=== PATIENT | female | born 1940 | race Caucasian/White ===

== ENCOUNTER 2021-01-16 16:54 | Inpatient (IN) | payer MEDICARE, OTHER ==
[~2021-01-16] VITALS: Ht 162.6 cm; Wt 67.5 kg
[2021-01-16] MEDS ORDERED: CefTRIAXone/D5W-Rocephin 1gm 50 ML IV ONE (17:40)
[2021-01-16] MEDS ORDERED: normal saline 1000ML IV soln IVB ONE (17:40)
[2021-01-16 18:15] LABS: CLARITY,URINE SLIGHTLY CLOUDY (Clear); COLOR,URINE YELLOW (Yellow); GLUCOSE, URINE NEGATIVE (Neg); KETONES,URINE NEGATIVE (Neg); LEUKOCYTE ESTERASE ,URINE LARGE (Neg); NITRITES, URINE NEGATIVE (Neg); OCCULT BLOOD,URINE SMALL (Neg); PROTEIN,URINE NEGATIVE (Neg); UA COLLECTION TYPE CLN CATCH MIDSTREAM; UROBILINOGEN,URINE 0.2 E.U/dL (0.2-1.0)
[2021-01-16 18:20] LABS: BASOPHILS # (AUTO) 0.1 X10'3 (0-0.2); BASOPHILS % (AUTO) 0.9 % (0-1); EOSINOPHILS % (AUTO) 0.1 % (0-6); HEMATOCRIT 40.2 % (35.0-45.0); HEMOGLOBIN 13.5 g/dl (12.0-16.0); LYMPHOCYTES # (AUTO) 0.2 X10'3 (1.1-4.8); LYMPHOCYTES % (AUTO) 2.2 % (21-51); MEAN CORPUSCULAR HEMOGLOBIN 30.2 PG (27.0-31.0); MEAN CORPUSCULAR HGB CONC 33.5 g/dL (33.0-36.5); MEAN CORPUSCULAR VOLUME 90.2 FL (78-98); MEAN PLATELET VOLUME 8.7 FL (7.4-10.4); MONOCYTES # (AUTO) 0.1 X10'3 (0-0.9); MONOCYTES % (AUTO) 1.8 % (2-12); NEUTROPHILS # (AUTO) 6.7 X10'3 (1.8-7.7); PLATELET COUNT 91 X10'3 (140-440); RED BLOOD COUNT 4.46 X10'6 (4.20-5.60); RED CELL DISTRIBUTION WIDTH 14.1 % (11.5-14.5)
[2021-01-16 18:24] LABS: BACTERIA,URINE 3+ /HPF (Neg); MUCUS STRANDS NONE SEEN /LPF (Neg); SQUAMOUS EPITHELIAL CELL,UR FEW /LPF (FEW); WBC CLUMPS,URINE MODERATE /HPF (NEGATIVE); WBC,URINE TNTC /HPF (0-4)
[2021-01-16] MEDS ORDERED: acetaminophen 325mg tablet PO ONE (18:30)
[2021-01-16 18:34] LABS: ALANINE AMINOTRANSFERASE 22 U/L (12-78); ALBUMIN 3.5 G/DL (3.4-5.0); ALKALINE PHOSPHATASE 87 IU/L (46-116); ANION GAP 9 (8-16); ASPARTATE AMINO TRANSFERASE 24 U/L (10-37); BILIRUBIN,TOTAL 0.6 MG/DL (0.1-1.0); BLOOD UREA NITROGEN 17 MG/DL (7-18); BUN/CREATININE RATIO 16.7 (6.6-38.0); CALCIUM 9.8 MG/DL (8.5-10.1); CHLORIDE 101 MMOL/L (99-107); CREATININE 1.02 MG/DL (0.40-0.90); GLUCOSE 141 MG/DL (70-104); SODIUM 135 MMOL/L (135-145); TOTAL PROTEIN 6.9 G/DL (6.4-8.2); eGFR 52 ML/MIN
--- NOTE | 2021-01-16 19:58 | NUR ---
[employer]ix [employer] :[phone]
[2021-01-16] MEDS ORDERED: NO HOME MEDS (20:25)
[2021-01-16] MEDS ORDERED: HYDROcodone/acetaminophen 5mg/325mg tablet PO PRN (20:55)
[2021-01-16] MEDS ORDERED: diphenhydrAMINE 25mg capsule PO PRN (20:55)
[2021-01-16] MEDS ORDERED: ondansetron/PF 4mg/2ml inj IV PRN (20:55)
[2021-01-16] MEDS ORDERED: diphenhydrAMINE 50 mg/ml inj IV PRN (20:55)
[2021-01-16] MEDS ORDERED: acetaminophen 325mg tablet PO PRN ×2 (20:55)
[2021-01-16] MEDS ORDERED: mag hydrox/Alum hydrox/simeth 30ml oral suspension PO PRN (20:55)
[2021-01-16] MEDS ORDERED: acetaminophen 650mg rectal suppository RC PRN (20:55)
[2021-01-16] MEDS ORDERED: magnesium hydroxide 30ml (MOM) UD suspension PO PRN (20:55)
[2021-01-16] MEDS ORDERED: morphine 2 MG/ML inj. syringe IV PRN (20:55)
[2021-01-16] MEDS ORDERED: bisacodyl 10mg suppository rectal RC PRN (20:55)
[2021-01-16] MEDS ORDERED: ondansetron 4mg rapidly disintigrating tab PO PRN (20:55)
[2021-01-16] MEDS ORDERED: temazepam 15mg capsule PO PRN (21:00)
[2021-01-16 21:25] LABS: PARTIAL THROMBOPLASTIN TIME 25 SECONDS (22-32)
[2021-01-16] MEDS: dextrose 5%-1/2 normal saline 1,000 ML IV SCH (21:32)
[2021-01-16 21:34] LABS: MAGNESIUM 1.7 MG/DL (1.5-2.4); PHOSPHORUS 2.1 MG/DL (2.3-4.5)
[2021-01-16 22:30] VITALS: BP 140/72
[2021-01-16] MEDS ORDERED: sodium phosphate inj. 30 MMOL in dextrose 5%-water 250 ML IV PRN (22:40)
[2021-01-16] MEDS ORDERED: sodium phosphate inj. 15 MMOL in dextrose 5%-water 250 ML IV PRN (22:40)
[2021-01-16] MEDS ORDERED: Neutra Phos packet PO PRN (22:40)
--- NOTE | 2021-01-16 22:40 | NUR ---
2200: Received report from FALLON Dhaliwal. 2200: Patient arrived to unit wearing pants, socks, and shoes. No other belongings arrived with patient.
--- NOTE | 2021-01-17 06:27 | NUR ---
Problems reprioritized. Patient report given, questions answered & plan of care reviewed with FALLON Dong.
[2021-01-17 06:33] LABS: EOSINOPHILS # (AUTO) 0.1 X10'3 (0-0.9); HEMOGLOBIN 11.7 g/dl (12.0-16.0); MEAN CORPUSCULAR VOLUME 89.6 FL (78-98); MONOCYTES # (AUTO) 0.9 X10'3 (0-0.9)
--- NOTE | 2021-01-17 06:36 | NUR ---
Patient in room [facility]. I have received report from Wilner LEHMAN and had the opportunity to ask questions and assume patient care.
[2021-01-17 06:37] LABS: BASOPHILS % (AUTO) 0.4 % (0-1); EOSINOPHILS % (AUTO) 1.4 % (0-6); HEMATOCRIT 34.6 % (35.0-45.0); LYMPHOCYTES # (AUTO) 1.2 X10'3 (1.1-4.8); LYMPHOCYTES % (AUTO) 17.1 % (21-51); MEAN CORPUSCULAR HEMOGLOBIN 30.2 PG (27.0-31.0); MEAN CORPUSCULAR HGB CONC 33.7 g/dL (33.0-36.5); MEAN PLATELET VOLUME 8.4 FL (7.4-10.4); MONOCYTES % (AUTO) 12.4 % (2-12); NEUTROPHILS # (AUTO) 4.8 X10'3 (1.8-7.7); NEUTROPHILS % (AUTO) 68.7 % (42-75); PLATELET COUNT 87 X10'3 (140-440); RED BLOOD COUNT 3.86 X10'6 (4.20-5.60); RED CELL DISTRIBUTION WIDTH 14.3 % (11.5-14.5); WHITE BLOOD COUNT 6.9 X10'3 (4.5-11.0)
[2021-01-17 06:44] LABS: ALANINE AMINOTRANSFERASE 20 U/L (12-78); ALBUMIN 2.6 G/DL (3.4-5.0); ALBUMIN/GLOBULIN RATIO 0.9 (1.1-1.5); ALKALINE PHOSPHATASE 65 IU/L (46-116); ANION GAP 4 (8-16); ASPARTATE AMINO TRANSFERASE 20 U/L (10-37); BILIRUBIN,TOTAL 0.4 MG/DL (0.1-1.0); BLOOD UREA NITROGEN 13 MG/DL (7-18); BUN/CREATININE RATIO 14.3 (6.6-38.0); CALCIUM 9.2 MG/DL (8.5-10.1); CHLORIDE 112 MMOL/L (99-107); CREATININE 0.91 MG/DL (0.40-0.90); GLUCOSE 113 MG/DL (70-104); POTASSIUM 4.2 MMOL/L (3.5-5.1); SODIUM 143 MMOL/L (135-145); TOTAL CARBON DIOXIDE 26.8 MMOL/L (24-32); TOTAL PROTEIN 5.5 G/DL (6.4-8.2); eGFR 59 ML/MIN
[2021-01-17 07:20] VITALS: BP 115/42
[2021-01-17] MEDS: pantoprazole 40mg Tablet.DR PO SCH (07:30)
[2021-01-17] MEDS ORDERED: heparin, porcine 5000 units/ml vial SQ SCH (08:00)
[2021-01-17] MEDS: docusate sod 100mg capsule PO SCH ×2 (08:00→20:00)
[2021-01-17] MEDS: dextrose 5%-1/2 normal saline 1,000 ML IV SCH ×2 (08:04→16:55)
--- NOTE | 2021-01-17 08:08 | NUR ---
Held heparin AQ due to platelets of 87 will discuss with primary RN Iker and have his discuss with
[2021-01-17 11:00] VITALS: BP 166/64
[2021-01-17 13:48] VITALS: BP_SYST 124; BP_SYST 131; BP_SYST 155; BP_DIAS 44; BP_DIAS 53; BP_DIAS 73
[2021-01-17] MEDS ORDERED: CefTRIAXone/D5W-Rocephin 1gm 50 ML IV SCH (17:00)
[2021-01-17 18:30] VITALS: BP 160/65
--- NOTE | 2021-01-17 18:37 | NUR ---
Problems reprioritized. Patient report given, questions answered & plan of care reviewed with DUNCAN LEHMAN.
[2021-01-17] MEDS: lactobacillus rhamnosus 10,000 MMU CELLS/CAPSULE PO SCH (20:17)
[2021-01-18] VITALS: BP 158/61
[2021-01-18] MEDS: dextrose 5%-1/2 normal saline 1,000 ML IV SCH (02:55)
--- NOTE | 2021-01-18 06:40 | NUR ---
Problems reprioritized. Patient report given, questions answered & plan of care reviewed with DUNCAN LEHMAN.
[2021-01-18 06:56] LABS: BASOPHILS % (AUTO) 0.8 % (0-1); EOSINOPHILS # (AUTO) 0.2 X10'3 (0-0.9); EOSINOPHILS % (AUTO) 4.2 % (0-6); HEMATOCRIT 36.3 % (35.0-45.0); HEMOGLOBIN 12.1 g/dl (12.0-16.0); LYMPHOCYTES # (AUTO) 1.3 X10'3 (1.1-4.8); LYMPHOCYTES % (AUTO) 27.8 % (21-51); MEAN CORPUSCULAR HEMOGLOBIN 30.2 PG (27.0-31.0); MEAN CORPUSCULAR HGB CONC 33.2 g/dL (33.0-36.5); MEAN CORPUSCULAR VOLUME 90.9 FL (78-98); MEAN PLATELET VOLUME 8.9 FL (7.4-10.4); MONOCYTES # (AUTO) 0.7 X10'3 (0-0.9); MONOCYTES % (AUTO) 14.4 % (2-12); NEUTROPHILS # (AUTO) 2.5 X10'3 (1.8-7.7); NEUTROPHILS % (AUTO) 52.8 % (42-75); PLATELET COUNT 94 X10'3 (140-440); RED BLOOD COUNT 3.99 X10'6 (4.20-5.60); RED CELL DISTRIBUTION WIDTH 13.8 % (11.5-14.5); WHITE BLOOD COUNT 4.8 X10'3 (4.5-11.0)
[2021-01-18 07:03] LABS: ALANINE AMINOTRANSFERASE 24 U/L (12-78); ALBUMIN 2.6 G/DL (3.4-5.0); ALBUMIN/GLOBULIN RATIO 0.9 (1.1-1.5); ALKALINE PHOSPHATASE 77 IU/L (46-116); ANION GAP 6 (8-16); ASPARTATE AMINO TRANSFERASE 18 U/L (10-37); BILIRUBIN,TOTAL 0.2 MG/DL (0.1-1.0); BLOOD UREA NITROGEN 10 MG/DL (7-18); BUN/CREATININE RATIO 11.6 (6.6-38.0); CHLORIDE 112 MMOL/L (99-107); CREATININE 0.86 MG/DL (0.40-0.90); GLUCOSE 103 MG/DL (70-104); POTASSIUM 4.1 MMOL/L (3.5-5.1); SODIUM 143 MMOL/L (135-145); TOTAL CARBON DIOXIDE 25.3 MMOL/L (24-32); TOTAL PROTEIN 5.6 G/DL (6.4-8.2); eGFR 63 ML/MIN
[2021-01-18] MEDS: pantoprazole 40mg Tablet.DR PO SCH (07:30)
[2021-01-18 08:00] VITALS: BP 159/66
[2021-01-18] MEDS: docusate sod 100mg capsule PO SCH (08:00)
[2021-01-18] MEDS ORDERED: LEVO500T89 PO (08:37)
[2021-01-18] MEDS: lactobacillus rhamnosus 10,000 MMU CELLS/CAPSULE PO SCH (08:38)
--- NOTE | 2021-01-18 10:50 | NUR ---
PATIENT DISCHARGED HOME AT THIS TIME. PATIENT LEFT AFTER VERBAL EDUCATION OF DISCHARGE INFORMATION. PATIENT EDUCATED ON NEW MEDICATION ADDED TO HER LIST AT THIS TIME. PATIENT IV TAKEN OUT AT DISCHARGE SITE SHOWED MINIMAL BLEEDING AND CANULA WAS WHOLE AND INTACT UPON INSPECTION. PATIENT LEFT WITH ALL BELONGINGS AT THIS TIME.
== END 2021-01-18 10:50 | disposition home or self-care (01) | DRG 871 ==
LOC: ER 16:54 → ED HOLD 20:55 → ER 20:56 → SUR 3N 22:28
PROVIDERS: ADMIT Family Medicine; ATTEND Family Medicine
DX: A41.9 Sepsis, unspecified organism (principal); G93.41 Metabolic encephalopathy; N13.6 Pyonephrosis; N17.9 Acute kidney failure, unspecified; K57.30 Diverticulosis of large intestine without perforation or abscess without bleeding; B96.20 Unspecified Escherichia coli [E. coli] as the cause of diseases classified elsewhere; D69.6 Thrombocytopenia, unspecified; N83.201 Unspecified ovarian cyst, right side; D64.9 Anemia, unspecified; R55 Syncope and collapse; E83.39 Other disorders of phosphorus metabolism; Z60.2 Problems related to living alone; E86.0 Dehydration; I10 Essential (primary) hypertension
CPT/HCPCS: 36415; 71045; 74176; 80053; 81001; 83605; 83735; 83880; 84100; 84145; 85025; 85610; 85730; 87040; 87077; 87081; 87088; 87186; 93005; 93306; 93880; 96365; 99285; G0378; J0696; J7030

== ENCOUNTER 2022-08-12 10:20 | Day surgery (SDC) | payer MEDICARE, OTHER ==
[2022-08-05 11:35] LABS: BASOPHILS % (AUTO) 0.6 % (0-1); EOSINOPHILS # (AUTO) 0.1 X10'3 (0-0.9); EOSINOPHILS % (AUTO) 2.3 % (0-6); LYMPHOCYTES # (AUTO) 1.3 X10'3 (1.1-4.8); LYMPHOCYTES % (AUTO) 22.4 % (21-51); MEAN CORPUSCULAR HEMOGLOBIN 30.1 PG (27.0-31.0); MEAN CORPUSCULAR HGB CONC 32.7 g/dL (33.0-36.5); MEAN CORPUSCULAR VOLUME 92.1 FL (78-98); MEAN PLATELET VOLUME 8.5 FL (7.4-10.4); MONOCYTES # (AUTO) 0.5 X10'3 (0-0.9); MONOCYTES % (AUTO) 8.4 % (2-12); NEUTROPHILS # (AUTO) 3.9 X10'3 (1.8-7.7); NEUTROPHILS % (AUTO) 66.3 % (42-75); PRE OP HEMATOCRIT 42.3 % (35.0-45.0); PRE OP HEMOGLOBIN 13.8 g/dL (12.0-16.0); PRE OP PLATELET COUNT 148 X10'3 (140-440); RED BLOOD COUNT 4.59 X10'6 (4.20-5.60); RED CELL DISTRIBUTION WIDTH 13.2 % (11.5-14.5)
[2022-08-05 12:26] LABS: ALBUMIN 3.6 G/DL (3.4-5.0); ALBUMIN/GLOBULIN RATIO 1.1 (1.1-1.5); ALKALINE PHOSPHATASE 107 IU/L (46-116); BLOOD UREA NITROGEN 17 MG/DL (7-18); BUN/CREATININE RATIO 21.3 (6.6-38.0); CALCIUM 10.3 MG/DL (8.5-10.1); CHLORIDE 107 MMOL/L (99-107); PRE OP ALT 15 U/L (30-65); PRE OP ANION GAP 5 (8-16); PRE OP AST 18 U/L (10-37); PRE OP BILIRUB, TOTAL 0.5 MG/DL (0.0-1.0); PRE OP GLUCOSE 101 MG/DL (70-104); PRE OP POTASSIUM 3.9 MMOL/L (3.4-5.1); PRE OP SODIUM 138 MMOL/L (135-145); TOTAL CARBON DIOXIDE 26.1 MMOL/L (24-32); TOTAL PROTEIN 6.8 G/DL (6.4-8.2); eGFR 69 ML/MIN
[~2022-08-12] VITALS: Ht 160 cm; Wt 71.2 kg
[2022-08-12] VITALS (11 sets, daily range): BP systolic 142–175; BP diastolic 70–89
[~2022-08-12 10:20] MED LIST: NO HOME MEDS; ceFAZolin inj. 2,000 MG in dextrose 5%-water 100 ML IV ONE; famotidine 20mg tablet PO ONE; ringers solution, lacted 1,000 ML IV SCH
[2022-08-12] MEDS ORDERED: ondansetron/PF 4mg/2ml inj IV PRN ×2 (10:45→12:00)
[2022-08-12] MEDS ORDERED: HYDROcodone/acetaminophen 5mg/325mg tablet PO PRN (10:45)
[2022-08-12] MEDS ORDERED: acetaminophen 325mg tablet PO PRN (10:45)
[2022-08-12] MEDS ORDERED: morphine 2 MG/ML inj. syringe IV PRN ×2 (10:45→12:00)
[2022-08-12] MEDS ORDERED: ringers solution, lacted 1,000 ML IV SCH ×2 (10:45→12:00)
[2022-08-12] MEDS ORDERED: BUPIVAcaine 0.25% w/Epi /PF 30ml vial ONE (10:57)
[2022-08-12] MEDS ORDERED: methylene blue (5mg/ml) 50mg/10ml ampul IV ONE (10:58)
[2022-08-12] MEDS ORDERED: propofol inj 20 ML IV ONE (11:27)
[2022-08-12] MEDS ORDERED: midazolam 1 mg/ML 2ml injection ONE (11:27)
[2022-08-12] MEDS ORDERED: ondansetron/PF 4mg/2ml inj ONE (11:27)
[2022-08-12] MEDS ORDERED: fentaNYL/PF 50MCG/1 ML 2ML syringe ONE (11:27)
[2022-08-12] MEDS ORDERED: sevoflurane 250ml liquid IH ONE (11:28)
[2022-08-12] MEDS ORDERED: dexamethasone sod phosphate 10mg/ml inj ONE (11:28)
[2022-08-12] MEDS ORDERED: labetalol 20mg/4ml (5mg/ml) syringe IV PRN (12:00)
[2022-08-12] MEDS ORDERED: fentaNYL/PF 50MCG/1 ML 2ML syringe IV PRN ×2 (12:00)
[2022-08-12] MEDS ORDERED: hydrALAZINE 20mg/ml inj. IV PRN (12:00)
[2022-08-12] MEDS ORDERED: morphine 4 MG/ML inj SYRINge IV PRN (12:00)
[2022-08-12] MEDS ORDERED: labetalol 20mg/4ml (5mg/ml) syringe IV ONE (12:06)
--- NOTE | 2022-08-12 12:56 | NUR ---
Received from OR via [facility] TO ROOM 8, accompanied by Anesthesiologist DR HINES and report given by Anesthesiolgist. PT PRESNTS WITH PIV 20G RIGHT FOREARM, BREST DRESSING AND BINDER CDI. VSS.
--- NOTE | 2022-08-12 14:26 | NUR ---
: ALL DISCHARGE CRITERIA HAS BEEN MET. VSS, PAIN AT A TOLERABLE LEVEL, VOIDING AND ABLE TO SAFELY AMBULATE AND TRANSFER SELF. IV TAKEN OUT WITHOUT ANY COMPLICATIONS. ALL DISCHARGE INSTRUCTIONS COVERED WITH PATIENT AND ALL QUESTIONS ANSWERED. PATIENT TAKEN OUT VIA WHEELCHAIR TO PERSONAL VEHICLE WHERE FAMILY/FRIEND DROVE PATIENT HOME. Addendum: 08/12/22 at 1430 by Iza Skinner RN, RN Amended: Links added.
== END 2022-08-12 14:26 | disposition home or self-care (01) ==
LOC: PAS 10:20
PROVIDERS: ATTEND Surgery
DX: C50.912 Malignant neoplasm of unspecified site of left female breast (principal); H91.90 Unspecified hearing loss, unspecified ear; Z98.890 Other specified postprocedural states; E89.2 Postprocedural hypoparathyroidism
CPT/HCPCS: 19301; 36415; 76998; 80053; 82948; 85025; 93005; J0690; J1100; J2250; J2405; J2704; J3010; J3490; J7030; J7060; J7120; S0020; Z7506; Z7508; Z7512; 88307; A4215; A4618; A6449; A7000; Q9968

== ENCOUNTER 2023-05-18 14:17 | Emergency (ER) | payer MEDICARE, OTHER ==
[~2023-05-18] VITALS: Ht 162.6 cm; Wt 68.0 kg
[~2023-05-18 14:17] MED LIST changes: -ceFAZolin inj. 2,000 MG in dextrose 5%-water 100 ML IV ONE; -famotidine 20mg tablet PO ONE; -ringers solution, lacted 1,000 ML IV SCH
[2023-05-18 15:59] VITALS: BP 182/64; PULSE 79; TEMP 97.8; O2SAT 99
[2023-05-18 16:35] VITALS: RESP 15
== END 2023-05-18 16:40 | disposition home or self-care (01) ==
LOC: ER 14:18
DX: M25.461 Effusion, right knee (principal); Z79.899 Other long term (current) drug therapy; W19.XXXA Unspecified fall, initial encounter; Y93.89 Activity, other specified; Y92.89 Other specified places as the place of occurrence of the external cause; Y99.8 Other external cause status
CPT/HCPCS: 73564; 99284

== ENCOUNTER 2023-07-17 07:46 | Emergency (ER) | payer MEDICARE, OTHER ==
[~2023-07-17] VITALS: Ht 160 cm; Wt 67.3 kg
[2023-07-17 08:36] VITALS: BP 198/79; PULSE 80; RESP 18; TEMP 97.9; O2SAT 97
== END 2023-07-17 11:07 | disposition left against medical advice (07) ==
LOC: ER 07:47
DX: R22.1 Localized swelling, mass and lump, neck (principal); Z53.21 Procedure and treatment not carried out due to patient leaving prior to being seen by health care provider
CPT/HCPCS: 99281

== ENCOUNTER 2023-07-17 13:55 | Emergency (ER) | payer MEDICARE, OTHER ==
[~2023-07-17] VITALS: Ht 162.6 cm; Wt 70.5 kg
[2023-07-17 14:55] VITALS: BP 145/90
[2023-07-17] MEDS ORDERED: LIDOcaine 1% 30ml preserv. free vial IJ ONE (16:55)
[2023-07-17 18:03] VITALS: PULSE 70; RESP 18; O2SAT 99
== END 2023-07-17 17:55 | disposition home or self-care (01) ==
LOC: ER 13:56
DX: L02.11 Cutaneous abscess of neck (principal)
CPT/HCPCS: 10060; 99283; A6266; J3490; A6258

== ENCOUNTER 2023-10-31 11:05 | Emergency (ER) | payer MEDICARE, OTHER ==
[~2023-10-31] VITALS: Ht 165.1 cm; Wt 65.3 kg
[2023-10-31 12:29] LABS: ALANINE AMINOTRANSFERASE 13 U/L (12-78); ALBUMIN 2.7 G/DL (3.4-5.0); ALBUMIN/GLOBULIN RATIO 0.6 (1.1-1.5); ALKALINE PHOSPHATASE 60 IU/L (46-116); ANION GAP 9 (8-16); ASPARTATE AMINO TRANSFERASE 12 U/L (10-37); BASOPHILS % (AUTO) 0.1 % (0-1); BILIRUBIN,TOTAL 0.6 MG/DL (0.1-1.0); BLOOD UREA NITROGEN 9 MG/DL (7-18); BUN/CREATININE RATIO 9.1 (10.0-20.0); CHLORIDE 101 MMOL/L (99-107); CREATININE 0.99 MG/DL (0.40-0.90); EOSINOPHILS % (AUTO) 0.1 % (0-6); GLUCOSE 166 MG/DL (70-104); HEMOGLOBIN 13.3 g/dl (12.0-16.0); LYMPHOCYTES # (AUTO) 0.8 X10'3 (1.1-4.8); LYMPHOCYTES % (AUTO) 7.2 % (21-51); MEAN CORPUSCULAR HEMOGLOBIN 29.6 PG (27.0-31.0); MEAN CORPUSCULAR HGB CONC 33.1 g/dL (33.0-36.5); MEAN CORPUSCULAR VOLUME 89.4 FL (78-98); MEAN PLATELET VOLUME 8.3 FL (7.4-10.4); MONOCYTES # (AUTO) 0.6 X10'3 (0-0.9); MONOCYTES % (AUTO) 5.6 % (2-12); PLATELET COUNT 227 X10'3 (140-440); RED BLOOD COUNT 4.48 X10'6 (4.20-5.60); RED CELL DISTRIBUTION WIDTH 13.2 % (11.5-14.5); SODIUM 135 MMOL/L (135-145); TOTAL CARBON DIOXIDE 25.5 MMOL/L (24-32); TOTAL PROTEIN 7.2 G/DL (6.4-8.2); WHITE BLOOD COUNT 11.5 X10'3 (4.5-11.0); eCRCL 39 ML/MIN; eGFR 54 ML/MIN
[2023-10-31 12:36] LABS: POTASSIUM 2.9 MMOL/L (3.5-5.1)
[2023-10-31] MEDS: normal saline 1000ml 1,000 ML IV ONE ×2 (15:04→17:10)
[2023-10-31] MEDS: potassium Cl 20 mEq SR tablet PO ONE (15:52)
[2023-10-31 16:51] VITALS: TEMP 97.5
[2023-10-31 17:40] LABS: BILIRUBIN,URINE NEGATIVE (Neg); CLARITY,URINE CLOUDY (Clear); COLOR,URINE YELLOW (Yellow); GLUCOSE, URINE NEGATIVE (Neg); KETONES,URINE TRACE mg/dl (Neg); LEUKOCYTE ESTERASE ,URINE LARGE (Neg); NITRITES, URINE NEGATIVE (Neg); OCCULT BLOOD,URINE TRACE-INTACT (Neg); PROTEIN,URINE NEGATIVE (Neg)
[2023-10-31 17:44] LABS: UA COLLECTION TYPE CLN CATCH MIDSTREAM
[2023-10-31 17:51] LABS: RBC,URINE 0-2 /HPF (0-2); SQUAMOUS EPITHELIAL CELL,UR FEW /LPF (FEW); WBC,URINE TNTC /HPF (0-4)
[2023-10-31 17:52] LABS: BACTERIA,URINE 4+ /HPF (Neg)
[2023-10-31] MEDS ORDERED: CEPH-585 PO (18:08)
[2023-10-31] MEDS: cephalexin 500mg capsule PO ONE (18:10)
[2023-10-31 19:15] VITALS: BP 154/72; PULSE 78; RESP 16; O2SAT 99
== END 2023-10-31 19:17 | disposition home or self-care (01) ==
LOC: ER 11:06
DX: E86.0 Dehydration (principal); E87.6 Hypokalemia; N39.0 Urinary tract infection, site not specified; R31.9 Hematuria, unspecified; Z20.822 Contact with and (suspected) exposure to COVID-19; Z60.2 Problems related to living alone
CPT/HCPCS: 36415; 80053; 81001; 85025; 87077; 87088; 87186; 87502; 87503; 87811; 96360; 96361; 99285; J7030; 96365